=== PATIENT | female | born 1960 | race Caucasian/White ===

== ENCOUNTER 2016-05-18 20:01 | Emergency (ER) | payer OTHER ==
[2016-05-18 20:39] LABS: BASOPHIL 0.5 % (0-2); EOSINOPHIL 5.7 % (0-5); HGB 14.3 g/dl (12.5-16.0); LYMPHOCYTE 34.7 % (15-48); MCH 27.6 pg (25.0-31.0); MCV 81.1 fL (78.0-100.0); MONOCYTE 6.7 % (0-12); MPV 10.7 fL (6.0-9.5); NEUTROPHIL 52.4 % (41-80); PLT 345 K/uL (150-400); RBC 5.18 M/uL (4.20-5.40); WBC 11.8 K/uL (4.0-10.5)
[2016-05-18 20:51] LABS: PROTHROMBIN TIME 12.8 SECONDS (11.7-14.0); PTT 25.8 SECONDS (23.2-31.4)
[2016-05-18 20:52] LABS: D-DIMER < 0.27 ug/mLFEU (0.00-0.41)
[2016-05-18 20:58] LABS: TROPONIN T < 0.010 ng/mL
[2016-05-18 21:00] LABS: ALBUMIN 4.2 g/dL (3.5-5.0); BILIRUBIN - TOTAL 0.3 mg/dL (0.1-1.0); CREATININE 1.1 mg/dL (0.5-1.0); GLOBULIN (CALCULATION) 3.5 g/dL (2.2-4.2); POTASSIUM 3.9 mmol/L (3.5-5.1); TOTAL PROTEIN 7.7 g/dL (6.4-8.3)
[2016-05-18 22:10] LABS: BILIRUBIN NEGATIVE (NEGATIVE); BLOOD NEGATIVE Ery/uL (NEGATIVE); CLARITY CLEAR (CLEAR); COLOR YELLOW (YELLOW); GLUCOSE (U) NORMAL (NORMAL); KETONE (U) NEGATIVE (NEGATIVE); LEUKOCYTES TRACE Leu/uL (NEGATIVE); NITRITE NEGATIVE (NEGATIVE); PROTEIN TRACE (LOW) mg/dL (NEGATIVE); SPECIFIC GRAVITY 1.025 (1.001-1.030); UROBILINOGEN 0.2 mg/dL (0.2-1.0)
[2016-05-18 22:16] LABS: BACTERIA 2+; MUCOUS MODERATE
== END 2016-05-18 22:54 | disposition home or self-care (01) ==
LOC: FER 20:01
PROVIDERS: Emergency Medicine Emergency Medical Services
DX: R55 Syncope and collapse (principal); R10.30 Lower abdominal pain, unspecified; E86.9 Volume depletion, unspecified; R82.90 Unspecified abnormal findings in urine; E11.9 Type 2 diabetes mellitus without complications; I10 Essential (primary) hypertension; Z85.820 Personal history of malignant melanoma of skin; Z98.890 Other specified postprocedural states
CPT/HCPCS: 36415; 71010; 74000; 80053; 81001; 82550; 82553; 84484; 85025; 85379; 85610; 85730; 87088; 93005; J2405

== ENCOUNTER 2020-05-13 22:26 | Emergency (ER) | payer OTHER ==
[~2020-05-13 22:26] MED LIST: LEVOTHYROXINE200 MC1 PO; OLMESARTAN-HCT1 EACH PO; ONDANSETRON ODT4 MG PO/SL; PROTONIX 40MG T40 MG PO; VICTOZA 3-0.6 MG/0.1 SC
== END 2020-05-13 22:58 | disposition left against medical advice (07) ==
LOC: FER 22:26
DX: R51.9 Headache, unspecified (principal); R11.10 Vomiting, unspecified; R50.9 Fever, unspecified; Z53.8 Procedure and treatment not carried out for other reasons